=== PATIENT | male | born 1965 | race Caucasian/White ===

== ENCOUNTER → 2021-01-05 02:36 | Outpatient (CLI) | payer BC, SELFPAY ==
[2021-01-05 19:44] LABS: SARS-CoV-2 RNA PCR Negative
== END ==
PROVIDERS: PCP Internal Medicine; Visit Provider Surgery
DX: Z01.812 Encounter for preprocedural laboratory examination (principal); Z20.822 Contact with and (suspected) exposure to COVID-19
CPT/HCPCS: C9803; U0003; U0005

== ENCOUNTER 2021-01-09 00:08 | Day surgery (SDC) | payer BC, SELFPAY ==
[2020-12-26 08:34] VITALS: BMI 24.3
--- NOTE | 2021-01-08 14:51 | PM.SD2 ---
Same Day Admit/Disch: HPI History of Present Illness Chief complaint: Right Inguinal Hernia Narrative: Adrian Peraza is a 55 year old male With over a 2 year history of a painful groin bulge on the right side. 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 He did have COVID-19 last July. He has been asymptomatic since the end of August. He was seen in the office and found to have a reducible symptomatic right inguinal hernia. He is taken to surgery now for right inguinal hernia repair as an outpatient. 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 Spiritual care concerns: No Same Day Admit/Disch: Med Pre-admit Medications Home Medications Medication Instructions Recorded Confirmed Type multivitamin 1 tablet PO DAILY 12/26/20 01/09/21 History hydrocodone-acetaminophen 1 - 2 tablet PO Q6H PRN #7 tablet 01/09/21 Rx ketorolac 10 mg PO Q6H 4 Days #16 tablet 01/09/21 Rx Exam Const: General: comfortable, no acute distress, alert and awake HENMT: Head: normocephalic and atraumatic Mouth: Yes Normal oral and palatal mucosa present Eyes: Conjunctivae: conjunctivae normal Pupils: Equal, round and reactive pupils present EOM: EOMs intact bilaterally Neck: Neck: normal visual inspection, no lymphadenopathy and nontender Resp: Effort & Inspection: normal respiratory effort Auscultation: clear to auscultation bilaterally Cardio: Rate: regular rate Rhythm: regular rhythm Heart sounds: no gallops, no murmurs and no rubs GI: Inspection: non-distended GI Palp: Yes Soft to palpation, No Tenderness to palpation present (GI), No Hepatomegaly present and No Splenomegaly present : Male General Exam: Yes hernia ( Reducible right inguinal hernia) Penis: Yes normal penis Scrotum: scrotum normal Testes: Testes normal Skin: Lesions: no lesions Rashes: no rashes Neuro: General: no focal motor deficits and CN's II-XI intact bilaterally Cranial nerves: Yes Equal, round and reactive pupils present, Yes Bilaterally intact EOM present, Yes facial symmetry and Yes Midline tongue present Speech: normal speech Motor exam (neuro): 5/5 motor strength present throughout and Motor abnormalities not present Extrem: General: no clubbing, cyanosis or edema and edema Psych: Affect: normal affect Thought process: Normal thought process present Insight: Good insight present (Psych) DS: Summary Time Spent with Patient Time attestation: Total time spent providing and/or coordinating discharge services: DS: Admitting Diagnosis Admitting Diagnosis Admitting Diagnosis: symptomatic reducible right inguinal hernia - plan to proceed with right inguinal hernia repair as an outpatient under anesthesia. The procedure the risks the benefits have been discussed with the patient. The usual recovery has been discussed. The use of mesh for the repair has been discussed. All questions were answered. He understands and agrees to go ahead. DS: Discharge Diagnosis Discharge Diagnosis (1) Right inguinal hernia: Code(s): K40.90 - Unilateral inguinal hernia, without obstruction or gangrene, not specified as recurrent Status: Chronic Discharge Plan Discharge Mckayla
[2021-01-09] VITALS (7 sets, daily range): BP systolic 101–129; BP diastolic 57–81; PULSE 50–70; RESP 12–16; TEMP 36; O2SAT 94–100
[2021-01-09] MEDS: ACETAMINOPHEN 500 MG TABLET 1000 MG PO (07:00)
--- NOTE | 2021-01-09 07:00 | P.PNAN_ITS ---
Anes - Initial Pre Proc Eval Procedure: Operation Date: 01/09/21 07:30 Proposed Procedures p Right Inguinal Hernia Repair - Abebe Turcios MD Date/Time: 01/09/21 07:00 Surgeon: Abebe Turcios MD Pre Op Diagnosis: Right Inguinal Hernia Patient Data Age: 55 Gender: M Height: 5 ft 7 in Weight: 68.5 kg Allergies Allergy/AdvReac Type Severity Reaction Status Date / Time No Known Allergies Allergy Verified 01/09/21 06:41 Home Medications Medication Instructions Recorded Confirmed Type multivitamin 1 tablet PO DAILY 12/26/20 01/09/21 History Patient hx anesthesia problems: none Family hx anesthesia problems: none PMFSH Past Medical History Medical History Abnormal echocardiogram GERD (gastroesophageal reflux disease) History of COVID-19 Hypotension Surgical History Surgical History History of tonsillectomy Family History Family History Mother , age 55 Breast cancer Grandparent Acute myocardial infarction Diabetes mellitus Social History Social History Smoking status: Never smoker Alcohol intake: never Substance use: never Substance use type: does not use Living arrangements: with family 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 Questions were solicited and answers provided to the satisfaction of the patient/family/POA.
--- NOTE | 2021-01-09 07:02 | WPDHPUPDATE1 ---
History and Physical Update Update Date/Time: 01/09/21 07:02 History and Physical has been reviewed, including an updated exam of the patient. There are NO changes in the patient's condition. Risks, benefits, and alternatives have been discussed and questions answered. Patient agrees to proceed with procedure.
[2021-01-09] MEDS: LACTATED RINGERS 1,000 ML 30 ML IV CONT ×2 (07:10→09:16)
[2021-01-09] MEDS: KETOROLAC 15 MG/ML VIAL (*BKC) IV PUSH (07:12)
[2021-01-09] MEDS: ceFAZolin 2 GM/D5W 50 ML 2 GM/50 ML BAG IVPB (07:29)
--- NOTE | 2021-01-09 08:47 | PM.PROC ---
Procedure Note - Detailed Date of procedure: 01/09/21 Pre-op diagnosis: Right Inguinal Hernia Right inguinal hernia Post-op diagnosis: same (Direct inguinal hernia) Procedure performed: Repair of Right inguinal hernia with 8 cm Parietex hernia mesh system Description of procedure: The patient was taken to surgery and IV sedation was administered. The right groin and genitalia were prepped and draped. Proposed incision was marked on the skin. Local was infiltrated into the skin and the deeper subcutaneous tissues. Incision was made and deepened through the subcutaneous. Crossing veins were cauterized and divided. Dissection was carried through Khalida's fascia down to the external oblique aponeurosis. The aponeurosis was exposed as was the external ring. Additional local anesthesia was infiltrated deep to the aponeurosis in the area of the spermatic cord and inguinal canal contents. The aponeurosis was opened laterally and extended medially through the external ring. The leaves of the aponeurosis were dissected free from the spermatic cord. The ileoinguinal nerve was carefully preserved throughout the dissection and was left attached to the spermatic cord. The cord was then mobilized medially on a [place] drain. The cord was dissected back to the internal ring. Dissection was then carried out the hernia sac from the cord. This was a direct hernia with a wide base. It occupied most of the direct space. It was dissected back to its neck. The hernia sac was scored through the transversalis fascia circumferentially just above the neck. The sac was dunked into the retroperitoneum. An 8 centimeter Parietex [place] was chosen. It was folded to form a plug. It was placed in the defect. The edges were sutured to the transversalis fascia with interrupted 3 0 Vicryl suture. The hernia defect was then partially closed with some additional 3 0 Vicryl suture. Patch was then cut to the appropriate size and placed over the inguinal canal floor. The lateral leaves were passed beyond the cord. The cord and ileoinguinal nerve were then laid over the patch. The external oblique aponeurosis was closed with interrupted 3 0 Vicryl suture. Khalida's fascia was closed with interrupted 3 0 Vicryl suture. The subcutaneous was closed with interrupted 4 0 Vicryl suture. Four 0 Vicryl subcuticular skin sutures were placed. The skin was closed finally with a running 4 0 Monocryl skin suture. The wound was dressed with Exofin surgical adhesive. The patient was awakened and taken to recovery in good condition. Sponge and needle counts were correct x2. Anesthesia: MAC and local (0.5% Marcaine with Exparel) Surgeon: Abebe Turcios MD Industrial Editor: Richa SCHWAB Estimated blood loss (mL): 5 Drains: No Packing: No Pathology: none sent Complications: None Condition: stable Disposition: same day Findings: Direct inguinal hernia.
== END 2021-01-09 11:09 | disposition home or self-care (01) ==
PROVIDERS: PCP Internal Medicine; Visit Provider Surgery
PROC: (CPT 49505; principal; 2021-01-09 07:30)
DX: K40.90 Unilateral inguinal hernia, without obstruction or gangrene, not specified as recurrent (principal); K21.9 Gastro-esophageal reflux disease without esophagitis; Z86.16 Personal history of COVID-19
CPT/HCPCS: 49505; A9270; C1781; C9290; C9803; J0690; J1100; J1885; J2250; J2405; J2704; J3010; J7120; U0003; U0005

== ENCOUNTER 2021-03-06 13:52 | Outpatient (CLI) | payer BC, SELFPAY ==
--- NOTE | 2021-03-06 14:18 | ECHO_ITS ---
Patient Info Name: Adrian Peraza Age: 55 years : 1965 Gender: Male Ht: 71 in Wt: 155 lbs BSA: 1.87 m2 HR: 56 bpm BP: 123 / 85 mmHg Technical Quality: Good Exam Date: 03/06/2021 2:25 PM Exam Location: [facility] Patient Status: Outpatient Admit Date: 03/06/2021 Staff Ordering Physician: Cody Cunha DO Credit Administrator: Carlos Pittman RDCS, RT Attending Provider: Cody Cunha DO Referring Physician: Alphonse SMITH; Exam Type: CA echo doppler color flow Study Info Indications I50.9 - Heart failure, unspecified Complete two-dimensional, color flow and Doppler transthoracic echocardiogram is performed. Strain analysis performed. Summary 1. Complete two-dimensional, color flow and Doppler transthoracic echocardiogram is performed. 2. Left ventricular chamber dimension is normal. 3. Left ventricular systolic function is normal, estimated at 55-60%. 4. The left ventricular diastolic function is grade II diastolic dysfunction. 5. E/e' 6 is not elevated. 6. 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 7. There is mild aortic valve regurgitation. Left Ventricle E/e' 6 is not elevated. Left ventricular chamber dimension is normal. Left ventricular systolic function is normal, estimated at 55-60%. The left ventricular diastolic function is grade II diastolic dysfunction. Right Ventricle Right ventricular systolic function is normal and with normal TAPSE 2.3 cm. Right ventricular chamber dimension is normal. Left Atria Left atrial chamber dimension is normal. Right Atria Right atrial chamber dimension is normal. 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 Aortic Valve The aortic valve is trileaflet. There is no aortic valve stenosis. There is mild aortic valve regurgitation. Pulmonic Valve There is no pulmonic regurgitation. Mitral Valve There is no mitral valve stenosis. There is no mitral valve regurgitation. Tricuspid Valve There is no tricuspid valve regurgitation. Pericardium/Pleural There is no pericardial effusion. Inferior Vena Cava Normal inferior vena cava with >50% collapse upon inspiration consistent with normal right atrial pressure, 5 mmHg. Aorta The aortic root size at the sinus of Valsalva is normal. Left Ventricular Outflow Tract Name Value Normal LVOT 2D LVOT Diameter 2.0 cm LVOT Doppler LVOT Peak Gradient 3 mmHg LVOT Mean Gradient 2 mmHg LVOT VTI 18 cm LVOT VTI/AV VTI Ratio 1.0 LVOT Stroke Volume 57 ml LVOT CO 3.4 l/min LVOT CI 1.8 l/min/m2 Mitral Valve Name Value Normal MV Doppler MV Decel [place] 379 cm/s2
== END 2021-03-06 13:53 | disposition home or self-care (01) ==
PROVIDERS: PCP Internal Medicine; Visit Provider Internal Medicine Cardiovascular Disease
DX: I51.9 Heart disease, unspecified (principal); I71.4 Abdominal aortic aneurysm, without rupture
CPT/HCPCS: 93306